=== PATIENT | female | born 1990 | race African-American/Black ===

== ENCOUNTER 2020-01-14 10:26 | Inpatient (IN) | payer BC, SELFPAY ==
[2020-01-10 10:23] LABS: BASOPHILS % 0.4 % (0.0-1.0); EOSINOPHILS # (AUTO) 0.2 (0.0-0.4); EOSINOPHILS % 2.2 % (0.0-6.0); HEMATOCRIT 37.9 % (34.2-44.1); HEMOGLOBIN 12.1 g/dL (12.0-16.0); LYMPHOCYTES % 29.8 % (18.0-39.1); MEAN CORPUSCULAR HEMOGLOBIN 28.3 pg (28-32); MEAN CORPUSCULAR HGB CONC 31.9 g/dL (31-35); MEAN CORPUSCULAR VOLUME 88.6 fL (81-99); MONOCYTES # (AUTO) 0.6 (0.2-0.8); MONOCYTES % 8.8 % (4.4-11.3); NEUTROPHILS # (AUTO) 3.9 (2.1-6.9); NEUTROPHILS % 58.7 % (38.7-80.0); PLATELET COUNT 232 x10e3/uL (140-360); RED BLOOD COUNT 4.28 x10e6/uL (3.6-5.1)
[~2020-01-14] VITALS: Ht 162.6 cm; Wt 143.3 kg
[~2020-01-14 10:26] MED LIST: MULTIVITAMINS1 EAC7 PO; PROVENTIL HFA6.7 GM INH
[2020-01-14] MEDS ORDERED: LEVOFLOXACIN 500MG/D5W 100ML 100 ML IV ONE (10:56)
[2020-01-14] MEDS ORDERED: SCOPOLAMINE 1.5 MG PATCH TOP SCH (11:00)
[2020-01-14] MEDS ORDERED: [UNRECOGNIZED DRUG - OTHER] (11:17)
[2020-01-14] MEDS ORDERED: TUMERIC (11:17)
[2020-01-14] MEDS ORDERED: BUPIVACAINE HCL 0.5% INJ 30 ML VIAL INJ ONE (11:36)
[2020-01-14] MEDS ORDERED: ACETAMINOPHEN 1000 MG/100 ML 100 ML IV ONE (11:54)
[2020-01-14] MEDS ORDERED: SEVOFLURANE INHAL SOLN 250 ML PEN BTL ONE (12:31)
[2020-01-14] MEDS ORDERED: ROCURONIUM BROMIDE 10 MG/ML 5ML VIAL IV ONE (12:31)
[2020-01-14] MEDS ORDERED: LIDOCAINE HCL 2% LOCAL INJ 5 ML SDV VIAL INJ ONE (12:31)
[2020-01-14] MEDS ORDERED: ONDANSETRON HCL INJ 2MG/ML 2ML 2 MG/ML VIAL ONE ×2 (12:31→14:48)
[2020-01-14] MEDS ORDERED: DEXAMETHASONE SOD PHOS INJ 4 MG/ML VIAL ONE (12:31)
[2020-01-14] MEDS ORDERED: GLYCOPYRROLATE INJ 0.2 MG/ML VIAL ONE (12:31)
[2020-01-14] MEDS ORDERED: PROPOFOL IV EMULSION 10 MG/ML 20 ML VIAL ONE (12:31)
[2020-01-14] MEDS ORDERED: NEOSTIGMINE 1 MG/ML 10ML VIAL ONE (12:31)
[2020-01-14] MEDS ORDERED: MIDAZOLAM HCL 2 MG/2 ML VIAL ONE (13:31)
[2020-01-14] MEDS ORDERED: FENTANYL CITRATE/PF 100MCG/2 ML INJ ONE ×2 (13:31→14:48)
--- OUTSIDE RECORDS SUMMARY | 2020-01-14 14:45 | XMS REPORT | Clinical Summary ---
Author Author SHELIA [facility] Address Unknown Phone Unavailable Care Team Providers Care Caddy Packer Name Role Phone Kaylan Alcantar MD PCP [phone] Allergies No Known Allergies Medications End Date Status Medication Sig Dispensed Refills Start Date Active fluconazole (DIFLUCAN) Take ii po 8 tablet 0 100 MG tablet now and then 0 one po daily. 08/28/2020 Active hydroCHLOROthiazide Take 1 tablet 90 tablet 2 08/06 (HYDRODIURIL) 25 MG (25 mg total) 0 tablet by mouth daily. Active Problems Not on file Encounters Care Team Description Date Type Specialty Kayla Ross CMA Advice Only (ENT information) 11/05/2019 Telephone Family Medicine Kaylan Alcantar MD Essential hypertension (Primary Dx); Hyperhidrosis; Chronic fatigue; Exposure to STD; Family history of hyperlipidemia; BMI 50.0-59.9, adult (HCC) 08/29/2019 Office Visit Family Medicine after 01/13/2019 Social History Date Tobacco Use Types Packs/Day Years Used Never Assessed Sex Assigned at Date Recorded Not on file Last Filed Vital Signs Reading Time Taken Comments Vital Sign 132/78 08/29/2019 11:03 AM CDT Blood Pressure 72 08/29/2019 11:03 AM CDT Pulse 36.2 C (97.1 F) 08/29/2019 11:03 AM CDT Temperature - - Respiratory Rate 100% 08/29/2019 11:03 AM CDT Oxygen Saturation - - Inhaled Oxygen Concentration 148.1 kg (326 lb 9.6 oz) 08/29/2019 11:03 AM CDT Weight 162.6 cm (5' 4") 08/29/2019 11:03 AM CDT Height 56.06 08/29/2019 11:03 AM CDT Body Mass Index Plan of Treatment Care Team Description Date [place] [id number] [place] [address] 01/16/2020 Office Visit Family Medicine Health Maintenance Due Date Last Done Comments CERVICAL CANCER SCREENING 2009 PAP ONLY (Age 21-65) INFLUENZA VACCINE (#1) 2019 LIPID PANEL 08/28/2022 08/29/2019 Procedures Comments Procedure Name Priority Date/Time Associated Diag nosis RPR Routine 08/29/2019 Exposure to STD 1:04 PM CDT TSH/FREE T4 IF INDICATED Routine 08/29/2019 Chron ic fatigue 1:04 PM CDT HIV-1 ANTIGEN WITH Routine 08/29/2019 Exposure to STD HIV-1/2 ANTIBODY 1:04 PM CDT LIPID PANEL Routine 08/29/2019 Essential hyper tension 1:04 PM CDT Hyperhidrosis Chronic fatigue Exposure to STD Family history of hyperlipidemia BMI 50.0-59.9, adult (HCC) COMPREHENSIVE METABOLIC Routine 08/29/2019 Essent ial hypertension PANEL 1:04 PM CDT Hyperhidrosis Chronic fatigue Exposure to STD Family history of hyperlipidemia BMI 50.0-59.9, adult (HCC) T3, FREE Routine 08/29/2019 Essential hyper tension 1:04 PM CDT Hyperhidrosis Chronic fatigue Exposure to STD Family history of hyperlipidemia BMI 50.0-59.9, adult (HCC) after 01/13/2019 Results * TSH/Free T4 If Indicated (08/29/2019 1:04 PM CDT) TSH w/reflex to 2.46 mIU/L [facility] FT4 Comment: Reference Range > or = 20 Years 0.40-4.50 Ranges First trimester 0.26-2.66 Second trimester 0.55-2.73 Third trimester 0.43-2.91 Specimen Narrative Performed At FASTING:YES [facility] FASTING: YES Resulting Agency Comment Performing Organization Information: Site ID: [id number] Name: [facility] Address: [address] [place] [id number] Director: Jens García Performing Organization Address [facility] one Number [facility] [address] [place] [phone] [facility] * HIV-1 Antigen with HIV-1/2 Antibody (08/29/2019 1:04 PM CDT) HIV AG/AB, 4TH NON-REACTIVE NON-REACTIVE [facility] GEN ([facility]) Comment: HIV-1 antigen and HIV-1/HIV-2 antibodies were not detected. There is no laboratory evidence of HIV infection. PLEASE NOTE: This information has been disclosed to you from records whose confidentiality may be protected by state law. If your state requires such protection, then the state law prohibits you from making any further disclosure of the information without the specific written consent of the person to whom it pertains, or as otherwise permitted by law. A general authorization for the release of medical or other information is NOT sufficient for this purpose. For additional information please refer to http://education.[employer].CityHour/faq/RTH950 (This link is being provided for informational/ educational purposes only.) The performance of this assay has not been clinically validated in patients less than 2 years old. Specimen Narrative Performed At FASTING:YES [facility] FASTING: YES Resulting Agency Comment Performing Organization Information: Site ID: [id number] Name: [facility] Address: [address] [place], [place] [id number] Director: Jens García Performing Organization Address [facility] one Number [facility] [address] [place] [phone] [facility] * RPR (08/29/2019 1:04 PM CDT) RPR NON-REACTIVE NON-REACTIVE [facility] Specimen Narrative Performed At FASTING:YES [facility] FASTING: YES Resulting Agency Comment Performing Organization Information: Site ID: [facility] Name: [facility] Address: [address] [place] [phone] Director: Jens García Performing Organization Address [facility] one Number [facility] [address] [place] [phone] [facility] * T3, free (08/29/2019 1:04 PM CDT) T3, Free 2.6 2.3 - 4.2 pg/mL [facility] Specimen Blood Narrative Performed At FASTING:YES [facility] FASTING: YES Resulting Agency Comment Performing Organization Information: Site ID: [id number] Name: [facility] Address: [address] [place] [address] Director: Jens García Performing Organization Address [facility] one Number [facility] [address] [place] [phone] [facility] * Lipid panel (08/29/2019 1:04 PM CDT) Cholesterol, 189 <200 mg/dL [facility] Total HDL Cholesterol 55 > OR = 50 mg/dL [facility] Triglycerides 54 <150 mg/dL [facility] LDL Cholesterol 119 (H) mg/dL (calc) [facility] Comment: Reference range: <100 Desirable range <100 mg/dL for primary prevention; <70 mg/dL for patients with CHD or diabetic patients with > or = 2 CHD risk factors. LDL-C is now calculated using the Marvin-Ollie calculation, which is a validated novel method providing better accuracy than the Friedewald equation in the estimation of LDL-C. Marvin SS et al. PATRICIA. 2013;310(19): 9827-8382 (http://education.[employer].com/faq/MKM476) Chol/HDL Ratio 3.4 <5.0 (calc) [facility] Non-HDL 134 (H) <130 mg/dL (calc) [facility] Cholesterol Comment: For patients with diabetes plus 1 major ASCVD risk factor, treating to a non-HDL-C goal of <100 mg/dL (LDL-C of <70 mg/dL) is considered a therapeutic option. Specimen Blood Narrative Performed At FASTING:YES [facility] FASTING: YES Resulting Agency Comment Performing Organization Information: Site ID: [id number] Name: [facility] Address: [address] [place] [phone] Director: Jens García Performing Organization Address [facility] one Number [facility] [address] [place] [phone] [facility] * Comprehensive metabolic panel (08/29/2019 1:04 PM CDT) Glucose 89 65 - 99 mg/dL [facility] Comment: Fasting reference interval BUN 9 7 - 25 mg/dL [facility] Creatinine 0.81 0.50 - 1.10 mg/dL [facility] eGFR If 97 > OR = 60 [facility] NonAfricn Am mL/min/1.73m2 eGFR If Africn 112 > OR = 60 [facility] Am mL/min/1.73m2 BUN/Creatinine NOT APPLICABLE 6 - 22 (calc) [facility] Ratio Sodium 140 135 - 146 mmol/L [facility] Potassium, 4.1 3.5 - 5.3 mmol/L [facility] Serum Chloride 106 98 - 110 mmol/L [facility] Carbon Dioxide, 29 20 - 32 mmol/L [facility] Total Calcium, Serum 9.0 8.6 - 10.2 mg/dL [facility] Protein, Total, 6.8 6.1 - 8.1 g/dL [facility] Serum Albumin 3.9 3.6 - 5.1 g/dL [facility] GLOBULIN 2.9 1.9 - 3.7 g/dL [facility] ([facility]) (calc) Albumin 1.3 1.0 - 2.5 (calc) [facility] Globulin Ratio Bilirubin, 0.4 0.2 - 1.2 mg/dL [facility] Total Alkaline 48 31 - 125 U/L [facility] Phosphatase, S AST (SGOT) 9 (L) 10 - 30 U/L [facility] ALT (SGPT) 9 6 - 29 U/L [facility] Specimen Blood Narrative Performed At FASTING:YES [facility] FASTING: YES Resulting Agency Comment Performing Organization Information: Site ID: [id number] Name: [facility] Address: [address] [place] [phone] Director: Jens García Performing Organization Address City/State/Zipcode Ph one Number [facility] [address] [place] [phone] [facility] after 01/13/2019 Insurance Type Payer Benefit Subscriber ID Effective Phone Address Plan / Dates Group PPO BLUE CROSS/BLUE SHIELD BCBS PPO [id number] 2013-P [phone] [address] EPO resent [id number] [place] [address]
[2020-01-14] MEDS ORDERED: METOCLOPRAMIDE HCL 10 MG/2ML VIAL ONE (14:49)
[2020-01-14 15:22] VITALS: BP 156/77
[2020-01-14 15:29] VITALS: BP 156/77
--- NOTE | 2020-01-14 15:29 | NUR ---
PT ARRIVED TO ROOM 107; MOTHER AT BEDSIDE. PT IN STABLE CONDITION.
[2020-01-14] MEDS: MORPHINE SULFATE 2 MG/ML SYR 1ML IV PRN ×4 (16:31→23:45)
[2020-01-14] MEDS: ONDANSETRON HCL INJ 2MG/ML 2ML 2 MG/ML VIAL IV PRN ×2 (16:31→23:30)
[2020-01-14] MEDS: LACTATED RINGER'S 1,000 ML IV SCH (16:33)
--- NOTE | 2020-01-14 17:31 | Operative Report ---
DATE OF PROCEDURE: 01/14/2020 SURGEON: Kareem Miles MD PREOPERATIVE DIAGNOSIS: Hiatal hernia. POSTOPERATIVE DIAGNOSIS: Hiatal hernia. PREOPERATIVE INDICATION: Treat disease, prevent hiatal hernia related complications. PROCEDURE: Laparoscopic hiatal hernia repair (CPT 92249). ANESTHESIA: General. SITE HEAD: Jamison Barroso, surgical oncologist (needed due to complexity of case). FLUIDS: 900 mL of crystalloid. ESTIMATED BLOOD LOSS: 20 mL. DRAINS: None. COMPLICATIONS: None. SPECIMENS: None. GRAFTS: None. FINDINGS: Small hiatal hernia. PROCEDURE IN DETAIL: The patient was brought to the operating room and was intubated under general endotracheal anesthesia. She was sterilely prepped and draped in the usual fashion. A preprocedure pause was performed identifying the patient, use of perioperative antibiotics, intended procedure, and staff surgeon. Access was gained via a 5 mm left subcostal incision using a Veress needle. The abdomen was insufflated. Four additional trocars were placed in standard position. A liver retractor was used to expose the stomach and the hiatus. I incised the gastrohepatic ligament, staying proximal to a replaced left hepatic artery, which was encountered. I then was able to mobilize and dissect out a hiatal hernia from the right and left ezekiel of the diaphragm as well as anteriorly. The hiatus was repaired with 0 Surgidac suture in an interrupted fashion. Next, we then verified hemostasis, removed the liver retractor, and desufflated the abdomen. Trocars were removed. The large port site was closed with 0 Vicryl suture using a Tony-Rudolph technique. The incision sites were closed with 4-0 Monocryl suture in a subcuticular fashion. Dermabond dressings were applied. A 0.25% bupivacaine was used both at the preperitoneal incision sites. The patient tolerated the procedure well. Type of wound was type 1, clean. All surgical sponge and instrument counts were correct. Kareem Miles MD [facility] /[id number]
--- NOTE | 2020-01-14 17:41 | Operative Report ---
DATE OF PROCEDURE: 01/14/2020 SURGEON: Kareem Miles MD This is a self-pay portion. PREOPERATIVE DIAGNOSIS: Morbid obesity, BMI 57. POSTOPERATIVE DIAGNOSIS: Morbid obesity, BMI 57. PREOPERATIVE INDICATION: Treat disease, prevent complications related to comorbid conditions of obesity. PROCEDURE: Laparoscopic vertical sleeve gastrectomy. ANESTHESIA: General. AUTO PARTS CLERK: Jamison Barroso, surgical rn (needed due to complexity of case). FLUIDS: 900 mL crystalloid. ESTIMATED BLOOD LOSS: 20 mL. DRAINS: None. COMPLICATIONS: None. SPECIMENS: Partial stomach. GRAFTS: None. FINDINGS: Negative leak test. PROCEDURE IN DETAIL: After fixing her hiatal hernia, I then mobilized the greater curvature of stomach from about 4 cm proximal to the pyloric valve to the left ezekiel of the diaphragm using the [place] LigaSure device. I then had Anesthesia inserted a 32-Occitan ViSiGi tube along the lesser curvature of the stomach. The greater curvature of the stomach was resected with multiple firings of a 60 mm purple load [employer] stapling device, which was reinforced with TRS. Once that was completed, we submerged the sleeve under saline and did a leak test, no leaks were identified. The specimen was removed through the right periumbilical port site. The port site was closed with 0 Vicryl suture using a Tony-Rudolph technique. We then verified hemostasis, removed the liver tractor, and desufflated the abdomen. Trocars were removed. Incision sites were closed with 4-0 Monocryl suture in a subcuticular fashion. Dermabond dressings were applied. A 0.25% bupivacaine was used both at the preperitoneal incision sites. The patient tolerated the procedure well. Type of wound is type 2, clean, contaminated. All surgical sponge and instrument counts were correct. Kareem Miles MD [facility] /[id number]
--- NOTE | 2020-01-14 18:51 | History and Physical ---
CHIEF COMPLAINT: "I have weight loss surgery." HISTORY OF PRESENT ILLNESS: This is a 29-year-old woman, who was initially admitted to [facility] with diagnosis of extreme obesity, BMI 54, complicating underlying GERD as well as her prehypertension. Today, the patient underwent successful laparoscopic sleeve gastrectomy and laparoscopic paraesophageal hiatal hernia repair. The patient states at this time she does have some pain in her mid epigastric area. The patient denies any nausea or vomiting. The patient denies any belching or flatus. The patient has not had bowel movements. REVIEW OF SYSTEMS: GENERAL: Weight is stable bur she lost 15 lbs intentionally prior to surgery. No fever or chills. HEENT: No headaches. No vision changes CARDIOVASCULAR/RESPIRATORY: No chest pain. No short of breath. No cough. GI: Complains of mid-epigastric pain. No nausea or vomiting. Denies any belching and flatus. : No Pena catheter in place. NEUROMUSCULAR: No limb weakness or numbness. PAST MEDICAL HISTORY: 1. Childhood asthma. 2. Prehypertension. 3. Extreme obesity, BMI 54. 4. GERD/hiatal hernia. MEDICATIONS: 1. Albuterol inhaler two puffs q.i.d. as needed for short of breath and wheezing. 2. Multivitamin daily. 3. Collagen supplement once daily. 4. Turmeric supplement once daily. FAMILY HISTORY: Her fraternal twin sister in 2016 due to complications of hypertension and type 2 diabetes. Her mother has hypertension and generalized osteoarthritis. ALLERGIES: PENICILLIN. PAST SURGICAL HISTORY: 1. Laparoscopic vertical sleeve gastrectomy today. 2. Laparoscopic paraesophageal hiatal hernia repair. SOCIAL HISTORY: This woman is single with no children. She currently lives with her mother. 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 Denies any tobacco use. The patient drinks alcohol socially. PHYSICAL EXAMINATION: GENERAL: She is somnolent, but arousable. She is very pleasant and cooperative. She does not appear to be in any obvious distress. VITAL SIGNS: Height 5 feet 4 inches. Weight is 316 pounds. BMI 54. Blood pressure is 156/78, pulse 72, respiratory rate 16, oxygen saturation is 97% on room air, temperature 98.0. INTEGUMENT: Skin is warm and dry. No pallor, jaundice, or diaphoresis. HEENT: Anterior sclerae. Moist mucous membranes. NECK: Supple. No evidence of jugular venous distention. CARDIOVASCULAR: Distant heart sounds. Regular rate and rhythm with an S4 gallop. LUNGS: No rales. No rhonchi. No wheezes. ABDOMEN: Soft. She has normal bowel sounds. The patient's trocar laparoscopic incisional sites are clean, dry and intact. EXTREMITIES: No edema or deformity. NEUROLOGIC: Intact. DIAGNOSES: 1. Status post sleeve gastrectomy. 2. Status post paraesophageal hiatal hernia repair. 3. Extreme obesity, BMI 54. 4. Hypertensive heart disease. PLAN: 1. Blood pressure monitoring control. 2. Intravenous fluids. 3. Mobilize the patient. 4. Initiate enoxaparin to prevent deep venous thrombosis. 5. Encourage incentive spirometer usage to prevent atelectasis. 6. Pain control. I would like to thank, Dr. Sanchez for involving in the care of this patient. I spent 40 minutes in the care of this patient. MD ARTHUR Cruz/RUY /[id number] YOJANA
--- NOTE | 2020-01-14 19:41 | NUR ---
Notified Dr Miles regarding patient c/o of pain 10/ and morphine due at this time but patient reporting morphine not helping. New order for toradol 30mg iv x1. Okay for patient to have ice chips.
[2020-01-14 20:00] VITALS: BP 151/90
[2020-01-14] MEDS ORDERED: KETOROLAC TROMETHAMINE 30 MG/ML VIAL IV ONE (20:05)
--- NOTE | 2020-01-14 20:45 | NUR ---
Assisted patient to turn to left side with pillow in place, tolerating well. Will continue to monitor.
[2020-01-14 21:00] VITALS: BP 151/90
[2020-01-14] MEDS: ENOXAPARIN SOD INJ 40 MG/0.4 ML SYR SC SCH (23:00)
--- NOTE | 2020-01-14 23:00 | NUR ---
Patient encouraged to get up and walk. Patient ambulated down sandoval to ICU doors and back to room. Tolerated well.
--- NOTE | 2020-01-14 23:30 | NUR ---
Assisted patient to turn to right side with pillows in place, tolerating well. Will continue to monitor.
[2020-01-15] VITALS: BP 153/96
[2020-01-15] MEDS: LACTATED RINGER'S 1,000 ML IV SCH ×2 (00:03→08:31)
--- NOTE | 2020-01-15 01:50 | NUR ---
Patient up ambulating in sandoval. ( distance: room to nurses station and back to room) tolerated well.
[2020-01-15] MEDS: MORPHINE SULFATE 2 MG/ML SYR 1ML IV PRN ×3 (02:05→08:31)
--- NOTE | 2020-01-15 02:32 | NUR ---
Assisted patient to turn to left side with pillows in place, tolerating well. Will continue to monitor.
[2020-01-15 03:42] VITALS: BP 165/79
[2020-01-15] MEDS: ONDANSETRON HCL INJ 2MG/ML 2ML 2 MG/ML VIAL IV PRN (05:45)
[2020-01-15 06:21] LABS: BASOPHILS % 0.3 % (0.0-1.0); HEMATOCRIT 37.5 % (34.2-44.1); HEMOGLOBIN 12.2 g/dL (12.0-16.0); LYMPHOCYTES # (AUTO) 1.6 (1.0-3.2); LYMPHOCYTES % 14.3 % (18.0-39.1); MEAN CORPUSCULAR HGB CONC 32.5 g/dL (31-35); MEAN CORPUSCULAR VOLUME 89.3 fL (81-99); MONOCYTES % 8.6 % (4.4-11.3); NEUTROPHILS # (AUTO) 8.5 (2.1-6.9); NEUTROPHILS % 76.5 % (38.7-80.0); PLATELET COUNT 193 x10e3/uL (140-360); RED CELL DISTRIBUTION WIDTH 14.1 % (11.7-14.4)
[2020-01-15] MEDS ORDERED: HYDROCODONE/APAP 7.5MG-325MG 1 EA TAB PO PRN (07:00)
[2020-01-15 07:02] LABS: ALANINE AMINOTRANSFERASE 21 IU/L (0-55); ALBUMIN 3.3 g/dL (3.5-5.0); ALBUMIN/GLOBULIN RATIO 0.8 (0.8-2.0); ALKALINE PHOSPHATASE 40 IU/L (40-150); ANION GAP 16.1 mmol/L (8-16); BLOOD UREA NITROGEN 6 mg/dL (7-26); BUN/CREATININE RATIO 8 (6-25); CARBON DIOXIDE 20 mmol/L (22-29); CHLORIDE 107 mmol/L (98-107); CREATININE, SERUM 0.75 mg/dL (0.57-1.11); EST GLOMERULAR FILTRATION RATE > 60 ML/MIN (60-); GLUCOSE 82 mg/dL (74-118); MAGNESIUM 1.8 MG/DL (1.3-2.1); PHOSPHORUS 3.8 MG/DL (2.3-4.7); POTASSIUM 4.1 mmol/L (3.5-5.1); SODIUM 139 mmol/L (136-145)
--- NOTE | 2020-01-15 07:13 | NUR ---
Bedside report and walking rounds completed with oncoming nurse. Patient in bed with call light within reach. Bed locked and in lowest position. POC updated with patient.
[2020-01-15 08:17] VITALS: BP 153/75
--- NOTE | 2020-01-15 08:21 | NUR ---
Progress note S: No complaints O: AF, VSS General- no acute distress Abdomen- soft, incisions c/d/i A/P: POD 1, s/p Lap hiatal hernia with sleeve gastrectomy -Clears, ambulate, IS, OOB to chair -DC home -F/u in 1-2 weeks; diet instructions given to patient
[2020-01-15 08:26] VITALS: BP 153/75
[2020-01-15] MEDS: ENOXAPARIN SOD INJ 40 MG/0.4 ML SYR SC SCH (08:31)
--- NOTE | 2020-01-15 09:09 | Discharge Summary ---
ADMITTING DIAGNOSES: 1. Extreme obesity, BMI of 54, complicating underlying hypertension and gastroesophageal reflux disease. DISCHARGE DIAGNOSES: 1. Status post laparoscopic vertical sleeve gastrectomy. 2. Status post laparoscopic hiatal hernia repair. 3. Hypertensive heart disease. 4. Extreme obesity, BMI 54. HOSPITAL COURSE: This is a 29-year-old woman, who was initially admitted to [facility] with diagnosis of extreme obesity, BMI of 54. It was complicating underlying hypertension and GERD. During this hospitalization, the patient underwent successful laparoscopic vertical sleeve gastrectomy as well as laparoscopic hiatal hernia repair. These two surgical procedures were performed by her bariatric surgeon namely Dr. Kareem Miles. The patient's brief hospitalization was unremarkable. The patient was tolerating clear liquid diet on discharge. The patient was also ambulating about the halls with no difficulty prior to being discharged. CONDITION ON DISCHARGE: The patient's condition on discharge was stable. DISCHARGE MEDICATIONS: 1. Albuterol inhaler two puffs q.i.d. as needed for shortness of breath and wheezing. 2. Multivitamins daily. 3. Ondansetron 4 mg every 6 hours p.r.n. nausea and vomiting, 20 prescribed. No refills. 4. Tylenol No. 3 one pill every 6 hours p.r.n. pain, 30 prescribed. No refills. FOLLOWUP INSTRUCTIONS: The patient instructed to follow up with Dr. Kareem Miles in a week and with primary care physician in 2 weeks. MD ARTHUR Cruz/RUY /[id number] cc: Kareem Miles MD MTDD
--- NOTE | 2020-01-15 11:47 | NUR ---
Patient was given a discharge order from Dr. Gomez. Patient was given strict dietary teaching by the gallery or museum technician. Patient verbalized all understanding. Patient was given detailed discharge instructions, education, and patient verbalized understanding. Patient IV removed at 1130 and covered with a C/D/I dressing. Patient states medications were already sent in to her pharmacy and her mom already picked them up. Patient had no other issues or complaints. Addendum: 01/15/20 at 1236 by Celia Delaney RN Patient refused wheelchair, walked to car at 1221. No other issues or complaints.
--- NOTE | 2020-01-15 11:57 | NUR ---
Nutrition Screen Note RD Recommendation for Physician: - Advancement to full liquids per MD Plan of Care: RD following, monitoring for tolerance and adequacy Nutrition reason for involvement: MD Consult- post gastric sleeve diet progression education Primary Diagnose(s): morbid obesity, sleeve gastrectomy PMH: morbid obesity, HTN, GERD Ht: 64 in Wt: 316 lb BMI: 54.2 kg/m2 IBW: [address] Assessment: (01/14) 29 YOF admitted for gastric sleeve surgery, seen today for diet education. Pt POD#1 for sleeve gastrectomy, states that she has not received diet education previously as outpatient prior to surgery. Pt receptive to diet education at time of visit. Pt educated on progression of CLD to full liquids to puree. Pt educated on protein supplements as well as MVI and mineral supplement recommendations. Advised no sugar, carbonated beverages, gum chewing, or straws. All questions and concerns addressed at time of visit. Chart reviewed. Labs and meds reviewed. Will continue to monitor. Current Diet: bariatric clear liquids Malnutrition Evaluation (01/15/20) The patient does not meet criteria for a specified degree of malnutrition at this time. Will re-evaluate at follow-up as appropriate. Diet Education Needs Assessment: Diet education not indicated, pt receptive and education provided 01/14. Learner(s): pt Barriers: none Cultural/Language Modifications: none Readiness: ready Method: handouts, discussion Topics: post gastric sleeve diet progression Understanding/Compliance: good Diet tolerance: tolerating CLD Nutrition Care Level: low Signed: Hue Wong RD, LD, [facility]
[2020-01-15 12:06] VITALS: BP 152/78
== END 2020-01-15 12:23 | disposition home or self-care (01) | DRG 621 ==
LOC: OR 10:26 → PACU V 14:27 → MED/SURG 15:22
PROVIDERS: ADMIT Internal Medicine; ATTEND Internal Medicine
PROC: 0DB64Z3 Excision of Stomach, Percutaneous Endoscopic Approach, Vertical (ICD-10-PCS; principal; 2020-01-14 12:30)
PROC: 0BQT4ZZ Repair Diaphragm, Percutaneous Endoscopic Approach (ICD-10-PCS; 2020-01-14 12:30)
DX: E66.01 Morbid (severe) obesity due to excess calories (principal); Z68.43 Body mass index [BMI] 50.0-59.9, adult; K44.9 Diaphragmatic hernia without obstruction or gangrene; J45.909 Unspecified asthma, uncomplicated; R03.0 Elevated blood-pressure reading, without diagnosis of hypertension; K21.9 Gastro-esophageal reflux disease without esophagitis; I11.9 Hypertensive heart disease without heart failure; Z11.59 Encounter for screening for other viral diseases
CPT/HCPCS: 36415; 80053; 81025; 83735; 84100; 85025; 96361; J1100; J1650; J1885; J1956; J2001; J2250; J2270; J2405; J2710; J2765; J3010; J7121